=== PATIENT | male | born 1945 | race Caucasian/White ===

== ENCOUNTER 2017-05-03 12:21 | Emergency (ER) | payer OTHER ==
[2017-05-03] MEDS ORDERED: NS 1,000 ML IV ONE (12:23)
--- NOTE | 2017-05-03 12:23 | EDPHY ---
H & P HPI/ROS: HPI CHIEF COMPLAINT: [ ] HISTORY OF PRESENT ILLNESS: [Need 4: Location, Duration, Severity, Quality, Context, Timing Modifying Factors, Associated S&S] Past Medical History: Past Surgical History: Social History: Family History: ROS REVIEW OF SYSTEMS: A comprehensive 10 point review of systems is otherwise negative aside from elements mentioned in the history of present illness. Exam Constitutional triage nursing summary reviewed, vital signs reviewed, awake/ alert. Eyes normal conjunctivae and sclera, EOMI, PERRLA. HENT normal inspection, atraumatic, moist mucus membranes, no epistaxis, neck supple/ no meningismus, no raccoon eyes. Respiratory clear to auscultation bilaterally, normal breath sounds, no respiratory distress, no wheezing. Cardiovascular rate normal, regular rhythm, no murmur, no edema, distal pulses normal. Gastrointestinal soft, non-tender, no rebound, no guarding, normal bowel sounds, no distension, no pulsatile mass. Genitourinary no CVA tenderness. Musculoskeletal no midline vertebral tenderness, full range of motion, no calf swelling, no tenderness of extremities, no meningismus, good pulses, neurovascularly intact. Skin pink, warm, & dry, no rash, skin atraumatic. Neurologic awake, alert and oriented x 3, AAOx3, moves all 4 extremities equally, motor intact, sensory intact, CN II-XII intact, normal cerebellar, normal vision, normal speech. Psychiatric normal mood/affect. Heme/Lymph/Immune no lymphadenopathy. Differential Diagnosis: Medical Decision Making: Re-evaluation: Source: Patient - Medical/Surgical History Hx Asthma: No Hx Chronic Respiratory Disease: No Hx Diabetes: Yes Hx Cardiac Disease: No Hx Renal Disease: No Hx Cirrhosis: No Hx Alcoholism: No Hx HIV/AIDS: No Hx Splenectomy or Spleen Trauma: Yes - Social History Smoking Status: Former smoker Allergies/Adverse Reactions: No Known Allergies Allergy (Unverified 12/25/15 17:38) Home Medications: Medication Instructions Recorded Aspirin [Aspirin 81mg (*)] 162 mg PO HS 12/26/15 FLUTICASONE PROPIONATE 1 spray EACHNARE DAILY PRN 12/26/15 Herbals/Supplements -Info Only 1 ea PO DAILY 12/26/15 Liraglutide [Victoza 3-Abdoul] 0.6 mg SQ HS 12/26/15 Metformin HCl 1,000 mg PO BIDMEAL 12/26/15 Nebivolol HCl [Bystolic] 10 mg PO HS 12/26/15 RAMIPRIL 10 mg PO BID 12/26/15 Rosuvastatin Calcium 20 mg PO HS 12/26/15 oxyCODONE/APAP 5/325 [Percocet 1 - 2 tab PO Q4HRS PRN #30 tab 12/27/15 5/325 (*)] Departure - Departure Referrals: Jacqueline Oconnell MD [Primary Care Provider] - As per Instructions
[2017-05-03 12:37] VITALS: O2SAT 93
--- NOTE | 2017-05-03 12:57 | EDPHY ---
H & P Stated Complaint: llq tenderness since . denies fever. Wants abx Source: Patient - Personal History Current Tetanus Diphtheria and Acellular Pertussis (TDAP): Yes - Medical/Surgical History Hx Asthma: No Hx Chronic Respiratory Disease: No Hx Diabetes: Yes Hx Cardiac Disease: No Hx Renal Disease: No Hx Cirrhosis: No Hx Alcoholism: No Hx HIV/AIDS: No Hx Splenectomy or Spleen Trauma: Yes Other PMH: appy. bladder ca. diverticulitis. right carotid endarectomy. tonsilectomy - Social History Smoking Status: Former smoker <Nabeel Zurita - Last Filed: 05/03/17 12:53> <Duarte De Los Santos - Last Filed: 05/03/17 17:08> Time Seen by Provider: 05/03/17 12:47 HPI/ROS: HPI CHIEF COMPLAINT: Left lower quadrant abdominal pain HISTORY OF PRESENT ILLNESS: Patient is a 71-year-old male, history of vascular disease with a right carotid endarterectomy, and remote history 2 years ago for diverticulitis. Patient presents emergency room with left lower quadrant abdominal pain. Patient states it is rather dull achy sensation worse when he goes and bends over. Dislocated his left lower quadrant. Does not radiate anywhere. It has been present since or 3 days. He has not had any fever vomiting. Denies diarrhea. States he had a normal bowel movement today. Denies blood in his stool. He states he feels very similar to previous diverticulitis. Decided come the emergency room as he has had ongoing pain for 3 days. Past Medical History: Hypertension, hyperlipidemia, diabetes, vascular disease , remote history 2 years ago of diverticulitis Past Surgical History: Carotid endarterectomy Social History: Denies drugs alcohol tobacco. Family History: Noncontributory ROS REVIEW OF SYSTEMS: A comprehensive 10 point review of systems is otherwise negative aside from elements mentioned in the history of present illness. Exam Constitutional appears well nontoxic no acute distress triage nursing summary reviewed, vital signs reviewed, awake/alert. Eyes normal conjunctivae and sclera, EOMI, PERRLA. HENT normal inspection, atraumatic, moist mucus membranes, no epistaxis, neck supple/ no meningismus, no raccoon eyes. Respiratory clear to auscultation bilaterally, normal breath sounds, no respiratory distress, no wheezing. Cardiovascular rate normal, regular rhythm, no murmur, no edema, distal pulses normal. Gastrointestinal mild tenderness palpation left lower quadrant, no peritoneal signs, no rebound, no guarding, normal bowel sounds, no distension, no pulsatile mass. Genitourinary no CVA tenderness. No inguinal hernia. Musculoskeletal no midline vertebral tenderness, full range of motion, no calf swelling, no tenderness of extremities, no meningismus, good pulses, neurovascularly intact. Skin pink, warm, & dry, no rash, skin atraumatic. Neurologic awake, alert and oriented x 3, AAOx3, moves all 4 extremities equally, motor intact, sensory intact, CN II-XII intact, normal cerebellar, normal vision, normal speech. Psychiatric normal mood/affect. Heme/Lymph/Immune no lymphadenopathy. Differential diagnosis includes but is not limited to and in no particular order : Bowel obstruction, appendicitis, gallbladder disease, diverticulitis, colitis , enteritis, perforated viscus, gastritis, GERD, esophagitis, urinary tract infection, pyelonephritis, kidney stones Medical Decision Making: Plan for this patient IV establishment IV fluid bolus , CT scan abdomen pelvis with IV contrast rule out acute diverticulitis colitis or perforation, check basic blood work, and re-evaluate. Re-evaluation: 1257: Patient is pending a CT scan abdomen pelvis with IV contrast as well as blood work for most likely acute diverticulitis. Rule out complicated diverticulitis. 1300: At this time this patient be signed over to Dr. De Los Santos to follow-up blood work and CT scan and appropriate disposition. Shift change at this time. (Nabeel Zurita) Constitutional: Initial Vital Signs Temperature (C) 36.2 C 05/03/17 12:30 Heart Rate 64 05/03/17 12:30 Respiratory Rate 16 05/03/17 12:30 Blood Pressure 168/82 H 05/03/17 12:30 O2 Sat (%) 93 05/03/17 12:30 O2 Delivery Mode Room Air Allergies/Adverse Reactions: No Known Allergies Allergy (Unverified 12/25/15 17:38) Home Medications: Medication Instructions Recorded Aspirin [Aspirin 81mg (*)] 162 mg PO HS 12/26/15 Metformin HCl 1,000 mg PO BIDMEAL 12/26/15 Nebivolol HCl [Bystolic] 10 mg PO HS 12/26/15 RAMIPRIL 10 mg PO BID 12/26/15 Rosuvastatin Calcium 20 mg PO HS 12/26/15 Bladder 2.2 05/03/17 Ciprofloxacin [Cipro] 500 mg PO BID #14 tab 05/03/17 Glimepiride 05/03/17 Hydrocodone/APAP 5/325 [[place] 1 - 2 tab PO Q4H PRN #10 tab 05/03/17 5/325] Ondansetron HCl [Zofran] 4 mg PO Q4-6PRN PRN #10 tablet 05/03/17 metroNIDAZOLE [Flagyl 500 mg (*)] 500 mg PO BID #20 tab 05/03/17 Medical Decision Making <Nabeel Zurita - Last Filed: 05/03/17 12:53> - Diagnostics Imaging: Discussed imaging studies w/ photoengraving retoucher Radiologist <Duarte De Los Santos - Last Filed: 05/03/17 17:08> - Diagnostics Imaging Results: Imaging Impressions Abdomen CT 05/03/17 12:50 Impression: 1. Acute diverticulitis of the proximal sigmoid colon. Recommend follow-up colonoscopy when the patient's medical condition permits. 2. No bowel obstruction, pneumoperitoneum, or drainable abscess. 3. Cholelithiasis without biliary ductal dilation. 4. Atherosclerotic aorta without aneurysm. 5. Right renal cortical cyst without evidence of urinary tract obstruction. 6. 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 Findings and recommendations discussed with Emergency Department physician, Dr. Duarte De Los Santos at 1437 hours on May 03, 2017. Final report concurs with initial preliminary interpretation. ED Course/Re-evaluation: 2:45 p.m. We discussed the CT results and lab work which is reassuring. The patient is well appearing. Have him start antibiotics here. He agrees with this. He does not think he will need pain medication but will take the prescription any ways. We discussed indications for returning. (Duarte De Los Santos ) Differential Diagnosis: Partial list of the Differential diagnosis considered include but were not limited to; diverticulitis, kidney stone, and although unlikely based on the history and physical exam, I also considered dissection, aneurysm, obstruction, perforation. I discussed these differential diagnoses and the plan with the patient as well as the usual and expected course. The patient understands that the diagnosis is provisional and that in medicine we are not always correct and that further workup is often warranted. Usual and customary warnings were given. All of the patient's questions were answered. The patient was instructed to return to the emergency department should the symptoms at all worsen or return, otherwise to followup with the physician as we discussed. ( Duarte De Los Santos) - Data Points Laboratory Results: Laboratory Results 05/03/17 13:00 05/03/17 13:00 05/03/17 05/03/17 05/03/17 13:10 13:10 13:10 WBC RBC Hgb Hct MCV MCH MCHC RDW Plt Count MPV Neut % (Auto) Lymph % (Auto) [place] % (Auto) Eos % (Auto) Baso % (Auto) Nucleat RBC Rel Count Absolute Neuts (auto) Absolute Lymphs (auto) Absolute Monos (auto) Absolute Eos (auto) Absolute Basos (auto) Absolute Nucleated RBC Immature Gran % Immature Gran # PT 13.4 SEC SEC (12.0-15.0) INR 1.03 (0.83-1.16) APTT 26.9 SEC SEC (23.0-38.0) VBG Lactic Acid 1.4 mmol/L mmol/L (0.7-2.1) Sodium Potassium Chloride Carbon Dioxide Anion Gap BUN Creatinine Estimated GFR Glucose Calcium Total Bilirubin Conjugated Bilirubin Unconjugated Bilirubin AST ALT Alkaline Phosphatase Total Protein Albumin Lipase Urine Color YELLOW Urine Appearance CLEAR Urine pH 5.5 (5.0-7.5) Ur Specific [place] <= 1.005 (1.002-1.030) Urine Protein NEGATIVE (NEGATIVE) Urine Ketones NEGATIVE (NEGATIVE) Urine Blood NEGATIVE (NEGATIVE) Urine Nitrate NEGATIVE (NEGATIVE) Urine Bilirubin NEGATIVE (NEGATIVE) Urine Urobilinogen 0.2 EU EU (0.2-1.0) Ur Leukocyte Esterase NEGATIVE (NEGATIVE) Urine Glucose NEGATIVE (NEGATIVE) 05/03/17 05/03/17 13:00 13:00 WBC 12.50 10^3/uL H 10^3/uL (3.80-9.50) RBC 4.59 10^6/uL 10^6/uL (4.40-6.38) Hgb 15.1 g/dL g/dL (13.7-17.5) Hct 43.4 % % (40.0-51.0) MCV 94.6 fL fL (81.5-99.8) MCH 32.9 pg pg (27.9-34.1) MCHC 34.8 g/dL g/dL (32.4-36.7) RDW 12.8 % % (11.5-15.2) Plt Count 260 10^3/uL 10^3/uL (150-400) MPV 10.5 fL fL (8.7-11.7) Neut % (Auto) 75.4 % H % (39.3-74.2) Lymph % (Auto) 9.3 % L % (15.0-45.0) [place] % (Auto) 10.1 % % (4.5-13.0) Eos % (Auto) 4.4 % % (0.6-7.6) Baso % (Auto) 0.5 % % (0.3-1.7) Nucleat RBC Rel Count 0.0 % % (0.0-0.2) Absolute Neuts (auto) 9.43 10^3/uL H 10^3/uL (1.70-6.50) Absolute Lymphs (auto) 1.16 10^3/uL 10^3/uL (1.00-3.00) Absolute Monos (auto) 1.26 10^3/uL H 10^3/uL (0.30-0.80) Absolute Eos (auto) 0.55 10^3/uL H 10^3/uL (0.03-0.40) Absolute Basos (auto) 0.06 10^3/uL 10^3/uL (0.02-0.10) Absolute Nucleated RBC 0.00 10^3/uL 10^3/uL (0-0.01) Immature Gran % 0.3 % % (0.0-1.1) Immature Gran # 0.04 10^3/uL 10^3/uL (0.00-0.10) PT INR APTT VBG Lactic Acid Sodium 141 mEq/L mEq/L (135-145) Potassium 4.3 mEq/L mEq/L (3.5-5.2) Chloride 106 mEq/L mEq/L (97-110) Carbon Dioxide 22 mEq/l mEq/l (22-31) Anion Gap 13 mEq/L mEq/L (8-16) BUN 13 mg/dL mg/dL (7-23) Creatinine 0.6 mg/dL L mg/dL (0.7-1.3) Estimated GFR > 60 Glucose 124 mg/dL H mg/dL (70-100) Calcium 9.4 mg/dL mg/dL (8.5-10.4) Total Bilirubin 1.1 mg/dL mg/dL (0.1-1.4) Conjugated Bilirubin 0.3 mg/dL mg/dL (0.0-0.5) Unconjugated Bilirubin 0.8 mg/dL mg/dL (0.0-1.1) AST 20 IU/L IU/L (17-59) ALT 36 IU/L IU/L (21-72) Alkaline Phosphatase 71 IU/L IU/L (38-126) Total Protein 7.0 g/dL g/dL (6.3-8.2) Albumin 4.0 g/dL g/dL (3.5-5.0) Lipase 134 IU/L IU/L (23-300) Urine Color Urine Appearance Urine pH Ur Specific [place] Urine Protein Urine Ketones Urine Blood Urine Nitrate Urine Bilirubin Urine Urobilinogen Ur Leukocyte Esterase Urine Glucose Medications Given: Discontinued Medications Ciprofloxacin (Cipro) 500 mg PO EDNOW ONE PRN Reason: Protocol Stop: 05/03/17 14:38 Last Admin: 05/03/17 15:02 Dose: 500 mg Sodium Chloride (Ns) 1,000 mls @ 0 mls/hr IV EDNOW ONE; Wide Open PRN Reason: Protocol Stop: 05/03/17 12:24 Last Admin: 05/03/17 13:28 Dose: 1,000 mls Metronidazole (Flagyl) 500 mg PO EDNOW ONE PRN Reason: Protocol Stop: 05/03/17 14:38 Last Admin: 05/03/17 15:01 Dose: 500 mg Departure <Nabeel Zuriat - Last Filed: 05/03/17 12:53> <Duarte De Los Santos - Last Filed: 05/03/17 17:08> - Departure Disposition: Home, Routine, Self-Care Clinical Impression: Diverticulitis Condition: Good Instructions: Diverticulitis (ED) Additional Instructions: 1. Antibiotics as prescribed. 2. Return emergency room if develops worsening abdominal pain fever vomiting. Referrals: Jacqueline Oconnell MD [Primary Care Provider] - As per Instructions Prescriptions: Ciprofloxacin [Cipro] 500 mg PO BID #14 tab Hydrocodone/APAP 5/325 [[place] 5/325] 1 - 2 tab PO Q4H PRN #10 tab PRN Reason: Pain, Moderate metroNIDAZOLE [Flagyl 500 mg (*)] 500 mg PO BID #20 tab Ondansetron HCl [Zofran] 4 mg PO Q4-6PRN PRN #10 tablet PRN Reason: Nausea/Vomiting, Use 1st
[2017-05-03 13:06] LABS: PLATELET COUNT 260 10^3/uL (150-400)
[2017-05-03] MEDS ORDERED: IOPAMIDOL (ISOVUE-300) 100 ML BTL ONE (13:07)
[2017-05-03 13:26] LABS: INR 1.03 (0.83-1.16); PROTIME(PATIENT) 13.4 SEC (12.0-15.0)
[2017-05-03] MEDS ORDERED: metroNIDAZOLE 500 MG TAB PO ONE (14:37)
[2017-05-03] MEDS ORDERED: CIPROFLOXACIN 500 MG TAB PO ONE (14:37)
[2017-05-03 14:59] VITALS: BP 127/66; PULSE 71; RESP 18; TEMP 98.4
== END 2017-05-03 15:11 | disposition home or self-care (01) ==
LOC: CED 12:21
DX: K57.92 Diverticulitis of intestine, part unspecified, without perforation or abscess without bleeding (principal); E86.9 Volume depletion, unspecified; E11.9 Type 2 diabetes mellitus without complications; I10 Essential (primary) hypertension; Z79.82 Long term (current) use of aspirin; Z85.51 Personal history of malignant neoplasm of bladder; Z87.891 Personal history of nicotine dependence; Z79.84 Long term (current) use of oral hypoglycemic drugs
CPT/HCPCS: 74177; 96360; 99285; Q9967; 80048-PO; 80076-PO; 81003-PO; 83605-PO; 83690-PO; 85025-PO; 85610-PO; 85730-PO

== ENCOUNTER 2017-11-18 09:05 | Day surgery (SDC) | payer OTHER ==
[2017-11-18] MEDS ORDERED: MIDAZOLAM 2 MG/2 ML VIAL IVP ONE (09:09)
[2017-11-18] MEDS ORDERED: fentaNYL 100 MCG/2 ML INJ IVP ONE (09:09)
[2017-11-18] MEDS ORDERED: NS 500 ML IV ONE (09:09)
[2017-11-18] MEDS ORDERED: ATROPINE SULFATE 1 MG/10 ML SYR IVP ONE (09:09)
[2017-11-18] MEDS ORDERED: BENZOCAINE UNIT DOSE SPRAY HURRICAINE MM ONE (09:09)
--- NOTE | 2017-11-18 12:17 | CPEKG ---
Test Reason : OPEN Blood Pressure : / mmHG Vent. Rate : 053 BPM Atrial Rate : 053 BPM P-R Int : 166 ms QRS Dur : 128 ms QT Int : 468 ms P-R-T Axes : -34 -52 069 degrees QTc Int : 440 ms Sinus rhythm Nonspecific IVCD with LAD LVH with secondary repolarization abnormality Confirmed by Chris Olivares ([id number]) on 11/18/2017 12:17:00 PM Referred By: Confirmed By:Chris Olivares
== END 2017-11-18 10:00 | disposition home or self-care (01) ==
LOC: FCATH 09:05
PROVIDERS: ATTEND Internal Medicine Cardiovascular Disease
DX: I48.91 Unspecified atrial fibrillation (principal); I77.89 Other specified disorders of arteries and arterioles; I25.10 Atherosclerotic heart disease of native coronary artery without angina pectoris; E11.9 Type 2 diabetes mellitus without complications; E78.5 Hyperlipidemia, unspecified; I10 Essential (primary) hypertension; C67.9 Malignant neoplasm of bladder, unspecified